=== PATIENT | male | born 1945 | race Caucasian/White ===

== ENCOUNTER → 2017-03-16 | Outpatient (CLI) | payer MEDICARE, BC ==
--- NOTE | 2017-03-16 17:54 | RADRPT ---
PROCEDURE: Left knee radiographs. CLINICAL INDICATION: Left knee pain. TECHNIQUE: Three views. Weight bearing. Frontal, lateral, and patellar view. COMPARISON: 12/23/2015. FINDINGS: There is no fracture or dislocation. The soft tissues are normal. There are degenerative changes with osteophytes arising from all 3 joint compartment margins. There is medial joint compartment narrowing and subarticular sclerosis. There is no lytic or blastic lesion. There is no radiopaque foreign body. IMPRESSION: 1. Moderate degenerative changes of the left knee. 2. No acute abnormality. 3. No change from 12/23/2015. RPTAT: QQ .Sven Mccall MD, MD Date Time Electronically viewed and signed by .Sven Mccall MD, MD on 03/16/2017 17:54 .R/
--- NOTE | 2017-04-05 06:00 | HKNOTE ---
DATE OF SERVICE: 03/16/2017 MAIN COMPLAINT: The patient has severe degenerative arthritis of his left knee. He had a cortisone injection into the knee 18 months ago. Since then, his pain has returned. He has been taking [id number] pain medications. The knee continues to cause him a great deal of discomfort. The knee frequently feels unstable. "It pops." He especially gets start-up pain if he sits for more than 5 minutes. The left leg feels weak. He also has restless legs syndrome. He is on BPA, gabapentin, Mirapex and Klonopin. The patient has lost a great deal of weight. He was 230 pounds at his peak. He is now 160 pounds. The patient had a lymph node removed from the left groin and was diagnosed and the biopsy showed that he had mantle cell lymphoma. Subsequently he does have lymphedema of his left leg. He is currently on Lasix to try and get rid of the lymphedema. His medical device engineer is Dr. Atkinson, who is a line dancer and a GP. The patient also has peripheral neuropathy. He saw Dr. Ryan Bailey who performed lower extremity EMG nerve conduction studies and he was told that they were normal. PHYSICAL EXAMINATION: Height 5 foot 7, weight 161 pounds. Blood pressure 120/65, temperature 99.0. HIP: On examination, both hips have full range of motion without pain. KNEES: Examination of the left knee, extension is full. Flexion lacks 20 degrees (causes pain) 1+ effusion. 2+ crepitus in the knee and the patella. Examination the right knee. Clinically normal. IMAGING: X-rays of the left hip obtained today were reviewed. These show marked narrowing of the medial joint line and patellofemoral joint. There some remaining articular cartilage on knee and there are no secondary changes of arthritis which include subchondral sclerosis and intraosseous cysts. DIAGNOSIS: 1. Severe degenerative osteoarthritis of the left knee. 2. Mantle cell lymphoma. 3. Peripheral neuropathy. ASSESSMENT: He was advised that sooner or later, he would have to have a left knee replacement. However, because of his mantle cell lymphoma, I do not think we should be too hasty about proceeding. He most certainly needs to be evaluated from that point of view by his medical device engineer and oncologist. MANAGEMENT: Under sterile conditions, he was given injection of 2 cc of Kenalog and 6 cc 2 of 2 percent lidocaine into the left knee. He will be seen again as necessary. We will certainly become a candidate for knee replacement in the near future if he does not get good relief from the cortisone injection. Dictated By: Lul Guzman MD /jackson/ifeoma /Document#: [id number]
== END | disposition home or self-care (01) ==
LOC: HKI 13:30
DX: M17.12 Unilateral primary osteoarthritis, left knee (principal); C83.10 Mantle cell lymphoma, unspecified site; G62.9 Polyneuropathy, unspecified
CPT/HCPCS: 20610; 73562; G0463